=== PATIENT | female | born 1955 | race Caucasian/White ===

== ENCOUNTER 2018-12-30 10:15 | Emergency (ER) | payer BC ==
[~2018-12-30] VITALS: Ht 162.6 cm; Wt 75.0 kg
[2018-12-30] MEDS ORDERED: LOTREL1 CA2 PO (10:39)
[2018-12-30] MEDS ORDERED: MOTRIN400 MG PO (11:21)
[2018-12-30 12:42] VITALS: BP 140/86
== END 2018-12-30 12:55 | disposition home or self-care (01) | DRG 605 ==
LOC: ED 10:15
PROC: 2W3DX1Z Immobilization of Left Lower Arm using Splint (ICD-10-PCS; principal; 2018-12-30)
DX: S60.222A Contusion of left hand, initial encounter (principal); M25.542 Pain in joints of left hand; R22.32 Localized swelling, mass and lump, left upper limb; W01.0XXA Fall on same level from slipping, tripping and stumbling without subsequent striking against object, initial encounter; Y93.73 Activity, racquet and hand sports; Y92.312 Tennis court as the place of occurrence of the external cause